=== PATIENT | female | born 1990 | race Caucasian/White ===

== ENCOUNTER 2016-10-02 21:20 | Emergency (ER) | payer OTHER ==
[~2016-10-02 21:20] MED LIST: NO MEDICATIONS; OXYCODON-ACETA1 EAC1
== END 2016-10-02 21:33 | disposition home or self-care (01) ==
LOC: SED 21:20
DX: G44.219 Episodic tension-type headache, not intractable (principal); H66.91 Otitis media, unspecified, right ear; Z98.51 Tubal ligation status
CPT/HCPCS: 96372; 99283; J1885